=== PATIENT | female | born 1990 | race Two or more races ===

== ENCOUNTER → 2023-09-30 | Outpatient (REF) | payer OTHER | LOC: M PLALAB 15:10 | PROVIDERS: ATTEND Advanced Practice Midwife | DX: Z53.20 Procedure and treatment not carried out because of patient's decision for unspecified reasons (principal) ==

== ENCOUNTER → 2023-09-30 | Outpatient (CLI) | payer OTHER ==
[2023-09-30 17:27] LABS: HEMATOCRIT 36.4 % (36.0-47.0); HEMOGLOBIN 12.1 g/dl (12.0-15.5); MEAN CORPUSCULAR HEMOGLOBIN 30.9 pg (27.0-33.0); MEAN CORPUSCULAR HGB CONC 33.2 g/dl (32.0-36.5); MEAN CORPUSCULAR VOLUME 92.9 fl (80.0-96.0); PLATELET COUNT, AUTOMATED 299 10^3/uL (150-450); RED BLOOD COUNT 3.92 10^6/uL (4.00-5.40); WHITE BLOOD COUNT 6.1 10^3/uL (4.0-10.0)
[2023-09-30 18:23] LABS: HIV 1&2 SCREEN NEGATIVE (NEGATIVE)
[2023-09-30 18:31] LABS: HEPATITIS C VIRUS ABY INDEX 0.02 INDEX (<0.8)
== END ==
LOC: M PLALAB 15:30
PROVIDERS: ATTEND Advanced Practice Midwife
DX: Z34.81 Encounter for supervision of other normal pregnancy, first trimester (principal)

== ENCOUNTER → 2023-10-04 | Outpatient (REF) | payer OTHER ==
[2023-10-04 20:21] LABS: GC DNA AMPLIFICATION NEGATIVE (NEGATIVE)
== END ==
LOC: M SFHCWAGY 16:56
PROVIDERS: ATTEND Advanced Practice Midwife
DX: Z34.81 Encounter for supervision of other normal pregnancy, first trimester (principal)

== ENCOUNTER → 2023-10-28 | Outpatient (REF) | payer OTHER | LOC: M PLALAB 13:50 | PROVIDERS: ATTEND Obstetrics & Gynecology | DX: R35.0 Frequency of micturition (principal) ==

== ENCOUNTER → 2023-11-25 | Outpatient (CLI) | payer OTHER, SELFPAY | LOC: M WHC 06:41 | PROVIDERS: ATTEND Obstetrics & Gynecology | DX: Z34.02 Encounter for supervision of normal first pregnancy, second trimester (principal); Z3A.19 19 weeks gestation of pregnancy ==

== ENCOUNTER → 2024-01-28 | Outpatient (CLI) | payer OTHER ==
[2024-01-28 14:10] LABS: HEMATOCRIT 34.8 % (36.0-47.0); HEMOGLOBIN 11.5 g/dl (12.0-15.5); MEAN CORPUSCULAR HEMOGLOBIN 31.5 pg (27.0-33.0); MEAN CORPUSCULAR VOLUME 95.3 fl (80.0-96.0); PLATELET COUNT, AUTOMATED 314 10^3/uL (150-450); RED BLOOD COUNT 3.65 10^6/uL (4.00-5.40)
[2024-01-28 15:02] LABS: HIV 1&2 SCREEN NEGATIVE (NEGATIVE)
[2024-01-28 15:10] LABS: HEPATITIS C VIRUS ABY INDEX 0.03 INDEX (<0.8)
[2024-01-28 15:30] LABS: GC DNA AMPLIFICATION NEGATIVE (NEGATIVE)
== END ==
LOC: M PLALAB 11:28
PROVIDERS: ATTEND Advanced Practice Midwife
DX: Z34.03 Encounter for supervision of normal first pregnancy, third trimester (principal); Z3A.00 Weeks of gestation of pregnancy not specified

== ENCOUNTER → 2024-03-02 | Outpatient (CLI) | payer OTHER | LOC: M WHC 07:56 | PROVIDERS: ATTEND Advanced Practice Midwife | DX: O26.849 Uterine size-date discrepancy, unspecified trimester (principal); Z3A.33 33 weeks gestation of pregnancy ==

== ENCOUNTER → 2024-03-20 | Outpatient (REF) | payer OTHER | LOC: M SFHCWAGY 12:42 | PROVIDERS: ATTEND Advanced Practice Midwife | DX: Z34.83 Encounter for supervision of other normal pregnancy, third trimester (principal) ==

== ENCOUNTER 2024-03-30 19:14 | Inpatient (IN) | payer OTHER ==
[2024-03-30] VITALS (14 sets, daily range): BP systolic 122–160; BP diastolic 61–88
[~2024-03-30] VITALS: Ht 170.2 cm; Wt 55.7 kg
[2024-03-30] MEDS ORDERED: PRENTAB9 PO (19:22)
[2024-03-30] MEDS ORDERED: HOME MED LIST COMPLETE! XX SCH (19:25)
[2024-03-30] MEDS ORDERED: LIDOCAINE 1% MDV 20ML VIAL INFIL PRN (19:40)
[2024-03-30] MEDS ORDERED: CARBOPROST TROMETHAMINE 250 MCG/ML AMP IM PRN (19:40)
[2024-03-30] MEDS ORDERED: METHYLERGONOVINE MALEATE 0.2MG/ML 1ML VIAL IM PRN (19:40)
[2024-03-30] MEDS ORDERED: OXYTOCIN DRIP 30 UNITS in IV 1 EA IV PRN (19:40)
[2024-03-30] MEDS ORDERED: OXYTOCIN INJ 10UNITS/ML 1ML VIAL IM PRN (19:40)
[2024-03-30 20:19] LABS: HEMATOCRIT 39.2 % (36.0-47.0); HEMOGLOBIN 13.1 g/dl (12.0-15.5); MEAN CORPUSCULAR HEMOGLOBIN 30.3 pg (27.0-33.0); MEAN CORPUSCULAR HGB CONC 33.4 g/dl (32.0-36.5); MEAN CORPUSCULAR VOLUME 90.5 fl (80.0-96.0); PLATELET COUNT, AUTOMATED 277 10^3/uL (150-450); RED BLOOD COUNT 4.33 10^6/uL (4.00-5.40); WHITE BLOOD COUNT 8.6 10^3/uL (4.0-10.0)
[2024-03-30 20:51] LABS: URIC ACID 3.5 MG/DL (3.1-7.8)
[2024-03-30 20:54] LABS: ALT/SGPT 18 U/L (7.0-40); AST/SGOT 30 U/L (<34); BILIRUBIN,TOTAL 0.4 MG/DL (0.3-1.2); CREATININE FOR GFR 0.74 MG/DL (0.55-1.30); GLOMERULAR FILTRATION RATE > 60.0 (>60); LDH LACTATE DEHYDROGENASE 196 U/L (120-246)
[2024-03-30 21:22] LABS: HIV 1&2 SCREEN NEGATIVE (NEGATIVE)
[2024-03-30 21:30] LABS: HEPATITIS C VIRUS ABY INDEX 0.13 INDEX (<0.8)
[2024-03-30] MEDS ORDERED: ONDANSETRON 4MG 2ML VIAL IV PRN (22:05)
[2024-03-30] MEDS ORDERED: NALOXONE INJ 0.4MG/1ML VIAL IV PRN (22:05)
[2024-03-30] MEDS ORDERED: EPIDURAL/PCA KEYS XX PRN (22:05)
[2024-03-30] MEDS ORDERED: diphenhydrAMINE 50MG/ML VIAL IV PRN (22:05)
[2024-03-30] MEDS ORDERED: LR 500 ML IV PRN (22:05)
[2024-03-30] MEDS ORDERED: ePHEDrine SULFATE 25 MG/5 ML(5MG/ML) SYRINGE IVP PRN (22:05)
[2024-03-30] MEDS: FENTANYL/ROPIVACAINE/NACL BAG 100 ML EPIDURAL SCH (22:31)
[2024-03-31] VITALS (19 sets, daily range): BP systolic 112–150; BP diastolic 61–79; O2SAT 100
[2024-03-31] MEDS: LR 1,000 ML IV SCH (03:08)
[2024-03-31] MEDS: TRANEXAMIC ACID INJection 1,000 MG in NS 100 ML IV PRN (05:14)
[2024-03-31] MEDS: OXYTOCIN DRIP 30 UNITS in IV 1 EA IV PRN (05:14)
[2024-03-31] MEDS ORDERED: DIBUCAINE 1% OINTMENT 30GM TOP PRN (05:55)
[2024-03-31] MEDS ORDERED: ACETAMINOPHEN 325 MG TAB PO PRN (05:55)
[2024-03-31] MEDS ORDERED: IBUPROFEN 800 MG TAB PO PRN (05:55)
[2024-03-31] MEDS ORDERED: ACETAMINOPHEN 500 MG TAB PO PRN (05:55)
[2024-03-31] MEDS ORDERED: RHOGAM 300MCG (1500IU) INJ IM SCH (05:55)
[2024-03-31] MEDS ORDERED: METHYLERGONOVINE MALEATE 0.2 MG TAB PO PRN (05:55)
[2024-03-31] MEDS ORDERED: IBUPROFEN 600MG TAB PO PRN (05:55)
[2024-03-31] MEDS: PRENATAL VITAMINS CHEWABLE TABLET PO SCH (10:44)
[2024-04-01 06:00] VITALS: BP 126/76; O2SAT 99
[2024-04-01] MEDS: DOCUSATE SODIUM 100MG CAPSULE PO PRN (10:12)
[2024-04-01 18:09] VITALS: BP 122/65; O2SAT 99
[2024-04-02 06:00] VITALS: BP 122/60; O2SAT 100
[2024-04-02] MEDS ORDERED: MEASLES,MUMPS,RUBELLA VACCINE INJ (MMR-II) SC.IMMUN ONE (09:00)
== END 2024-04-02 12:40 | disposition home or self-care (01) | DRG 807 ==
LOC: M LDO 19:14 → M LDI 19:41 → M OBS 03-31 07:46
PROVIDERS: ADMIT Advanced Practice Midwife; ATTEND Advanced Practice Midwife
PROC: 10E0XZZ Delivery of Products of Conception, External Approach (ICD-10-PCS; principal; 2024-03-31)
PROC: F13Z0ZZ Hearing Screening Assessment (ICD-10-PCS; 2024-03-31)
DX: O69.82X0 Labor and delivery complicated by other cord entanglement, without compression, not applicable or unspecified (principal); Z37.0 Single live birth; Z3A.37 37 weeks gestation of pregnancy; O70.0 First degree perineal laceration during delivery

== ENCOUNTER → 2024-05-25 | Outpatient (CLI) | payer OTHER ==
[~2024-05-25] MED LIST: PRENTAB9 PO
[2024-05-25 17:33] LABS: HEMATOCRIT 38.4 % (36.0-47.0); HEMOGLOBIN 12.1 g/dl (12.0-15.5); MEAN CORPUSCULAR HEMOGLOBIN 29.8 pg (27.0-33.0); MEAN CORPUSCULAR HGB CONC 31.5 g/dl (32.0-36.5); MEAN CORPUSCULAR VOLUME 94.6 fl (80.0-96.0); PLATELET COUNT, AUTOMATED 344 10^3/uL (150-450); RED BLOOD COUNT 4.06 10^6/uL (4.00-5.40)
== END ==
LOC: M PLALAB 15:58
PROVIDERS: ATTEND Advanced Practice Midwife
DX: Z39.2 Encounter for routine postpartum follow-up (principal)

== ENCOUNTER → 2025-01-01 | Outpatient (REF) | payer OTHER ==
[2025-01-08 11:37] LABS: HPV APTIMA Not Detected (Not Detected)
== END ==
LOC: M SFHCWAGY 14:34
PROVIDERS: ATTEND Advanced Practice Midwife
DX: Z12.4 Encounter for screening for malignant neoplasm of cervix (principal)
CPT/HCPCS: 87624; G0123